=== PATIENT | male | born 1990 | race Caucasian/White ===

== ENCOUNTER 2018-01-10 12:46 | Emergency (ER) | payer MEDICAID ==
[2018-01-10] MEDS ORDERED: Ondansetron 4 MG/2 ML SDV IVPUSH ONE (13:01)
[2018-01-10] MEDS ORDERED: Sodium Chloride 0.9% 10 ML Syringe FLUSH PRN ×2 (13:01→13:02)
[2018-01-10] MEDS ORDERED: Haloperidol Lactate 5 MG/ML SDV IV ONE (13:03)
[2018-01-10] MEDS ORDERED: Lactated Ringers 1,000 ML IV SCH (13:15)
[2018-01-10] MEDS ORDERED: Haloperidol Lactate 5 MG/ML SDV IM ONE (13:19)
[2018-01-10] MEDS ORDERED: hydrOXYzine HCl 50 MG/ML SDV IM ONE (13:56)
[2018-01-10] MEDS ORDERED: Take Home: Ondansetron 4 MG Tab.DIS, 2 Tab Pack PO ONE (15:20)
--- NOTE | 2018-01-11 07:07 | EDM.PDOC ---
ED HPI GENERAL MEDICAL PROBLEM - General Chief Complaint: Behavioral/Psych Stated Complaint: er Time Seen by Provider: 01/10/18 12:55 Source of Information: Reports: Patient History Limitations: Reports: No Limitations - History of Present Illness INITIAL COMMENTS - FREE TEXT/NARRATIVE: Pt. presents to ER with complaints of nausea/vomiting. He has a history of cyclic vomiting syndrome. He went out last night and had several drinks, and states that he started vomiting last night. No fever or chills. No diarrhea. Denies any chest pain or shortness of breath. Location: Reports: Abdomen Lower Abdomen Pain Score (Numeric/FACES): 8 - Related Data Allergies Allergy/AdvReac Type Severity Reaction Status Date / Time No Known Allergies Allergy Verified 01/10/18 13:01 Past Medical History Gastrointestinal History: Reports: Other (See Below) Other Gastrointestinal History: cyclic vomiting disorder Psychiatric History: Reports: Anxiety, Depression, PTSD, Suicidal Ideation - Past Surgical History GI Surgical History: Reports: Cholecystectomy Social & Family History - Tobacco Use Smoking Status *Q: Current Every Day Smoker Years of Tobacco use: 10 Packs/Tins Daily: 0.5 - Alcohol Use Days Per Week of Alcohol Use: 2 Number of Drinks Per Day: 2 Total Drinks Per Week: 4 Date of Last Drink: 01/09/18 - Recreational Drug Use Recreational Drug Use: Yes Drug Use in Last 12 Months: Yes Recreational Drug Type: Reports: Marijuana/Hashish Recreational Drug Use Frequency: Socially ED ROS GENERAL - Review of Systems Review Of Systems: See Below Constitutional: Reports: No Symptoms HEENT: Reports: No Symptoms Respiratory: Reports: No Symptoms Cardiovascular: Reports: No Symptoms GI/Abdominal: Reports: Abdominal Pain, Nausea, Vomiting : Reports: No Symptoms Musculoskeletal: Reports: No Symptoms Skin: Reports: No Symptoms Neurological: Reports: No Symptoms Psychiatric: Reports: No Symptoms Hematologic/Lymphatic: Reports: No Symptoms Immunologic: Reports: No Symptoms ED EXAM, GENERAL - Physical Exam Exam: See Below Exam Limited By: No Limitations General Appearance: Alert, WD/WN, No Apparent Distress Nose: Normal Inspection, Normal Mucosa, No Blood Throat/Mouth: Normal Inspection, Normal Lips, Normal Teeth, Normal Gums, Normal Oropharynx, Normal Voice, No Airway Compromise Head: Atraumatic, Normocephalic Neck: Normal Inspection, Supple, Non-Tender, Full Range of Motion Respiratory/Chest: No Respiratory Distress, Lungs Clear, Normal Breath Sounds, No Accessory Muscle Use, Chest Non-Tender Cardiovascular: Normal Peripheral Pulses, Regular Rate, Rhythm, No Edema, No Gallop, No JVD, No Murmur, No Rub Peripheral Pulses: 4+: Radial (L), Radial (R) GI/Abdominal: Normal Bowel Sounds, Soft, No Organomegaly, No Distention, No Abnormal Bruit, No Mass, Tender. No: Guarding, Rigid, Mass, Hepatomegaly, Splenomegaly (Male) Exam: Deferred Rectal (Males) Exam: Deferred Back Exam: Normal Inspection, Full Range of Motion, NT Extremities: Normal Inspection, Normal Range of Motion, Non-Tender, Normal Capillary Refill, No Pedal Edema Neurological: Alert, Oriented, CN II-XII Intact, Normal Cognition, Normal Gait, Normal Reflexes, No Motor/Sensory Deficits Psychiatric: Normal Affect, Normal Mood Skin Exam: Warm, Dry, Intact, Normal Color, No Rash Lymphatic: No Adenopathy Course - Vital Signs Last Recorded V/S: Last Vital Signs Temp 36.3 C 01/10/18 12:46 Pulse 93 01/10/18 12:46 Resp 20 01/10/18 12:46 BP 133/68 01/10/18 12:46 Pulse Ox - Orders/Labs/Meds Orders: Active Orders 24 hr Category Date Time Status Peripheral IV Insertion Adult [OM.PC] Routine Oth 01/10/18 13:01 Ordered Meds: Medications Discontinued Medications Generic Name Dose Route Start Last Admin Trade Name Freq PRN Reason Stop Dose Admin Haloperidol Lactate 5 mg 01/10/18 13:03 Haldol IV 01/10/18 13:04 ONETIME ONE Haloperidol Lactate 5 mg 01/10/18 13:19 01/10/18 13:21 Haldol IM 01/10/18 13:20 5 mg STAT ONE Administration Hydroxyzine HCl 50 mg 01/10/18 13:56 01/10/18 14:05 Vistaril IM 01/10/18 13:57 50 mg ONETIME ONE Administration Lactated Ringer's 1,000 mls @ 500 mls/hr 01/10/18 13:15 01/10/18 13:07 Ringers, Lactated IV 500 mls/hr ASDIRECTED LEXI Administration Ondansetron HCl 4 mg 01/10/18 13:01 01/10/18 13:07 Zofran IVPUSH 01/10/18 13:02 4 mg ONETIME ONE Administration Ondansetron HCl 1 packet 01/10/18 15:20 01/10/18 15:35 Take Home: Ondansetron Odt 4 Mg, 2 Tab Pack PO 01/10/18 15:21 1 packet ONETIME ONE Administration Sodium Chloride 10 ml 01/10/18 13:01 Saline Flush FLUSH ASDIRECTED PRN Keep Vein Open Sodium Chloride 10 ml 01/10/18 13:02 Saline Flush FLUSH ASDIRECTED PRN Keep Vein Open Departure - Departure Time of Disposition: 15:38 Disposition: Home, Self-Care 01 Clinical Impression: Cyclic vomiting syndrome - Discharge Information Instructions: Cyclic Vomiting Syndrome, Adult Referrals: PCP,None [Primary Care Provider] - Forms: ED Department Discharge Additional Instructions: Home to rest. Zofran ODT 1 every 8 hours as needed for nausea/vomiting. Establish care. Follow-up in clinic in 7-10 days - My Orders Last 24 Hours: My Active Orders 01/10/18 13:01 Peripheral IV Insertion Adult [OM.PC] Routine - Assessment/Plan Last 24 Hours: My Active Orders 01/10/18 13:01 Peripheral IV Insertion Adult [OM.PC] Routine
== END 2018-01-10 15:38 | disposition home or self-care (01) ==
LOC: VM.ED 12:46
DX: G43.A0 Cyclical vomiting, in migraine, not intractable (principal); F17.210 Nicotine dependence, cigarettes, uncomplicated
CPT/HCPCS: 96361; 96372; 96374; 99284; A9270-GY; J1630; J2405; J3410; J7120

== ENCOUNTER 2018-01-12 07:52 | Emergency (ER) | payer MEDICAID ==
[2018-01-12] MEDS ORDERED: Lactated Ringers 1,000 ML IV ONE (08:04)
[2018-01-12] MEDS ORDERED: Ondansetron 4 MG/2 ML SDV IVPUSH ONE (08:04)
[2018-01-12] MEDS ORDERED: hydrOXYzine HCl 50 MG/ML SDV IM ONE (08:04)
[2018-01-12] MEDS ORDERED: Sodium Chloride 0.9% 10 ML Syringe FLUSH PRN (08:04)
[2018-01-12] MEDS ORDERED: LORazepam 2 MG/ML SDV IVPUSH ONE (08:05)
--- NOTE | 2018-01-12 08:28 | EDM.PDOC ---
ED HPI GENERAL MEDICAL PROBLEM - General Chief Complaint: Gastrointestinal Problem Stated Complaint: ILL Time Seen by Provider: 01/12/18 08:02 Source of Information: Reports: Patient History Limitations: Reports: No Limitations - History of Present Illness INITIAL COMMENTS - FREE TEXT/NARRATIVE: Patient has a history of cyclic vomiting syndrome typically triggered by anxiety and stress. He has recently from his with a move to [place]. He was to his son's 1 year birthday republican over the weekend and he began to ruminate over his circumstances. This has caused him to become increasingly anxious. He was treated here yesterday with similar symptoms with no improvement. NO fever. He smokes 1/2 PPD, denies current drug use. Has smoked marijuana in the past with the last reported incident 2-3 weeks ago. He does drink socially up to twice weekly. Denies chest pain, abdominal pain, blood in urine or stool. He is having regular BM's and voiding habits. No suicidal ideation at this time. Onset: Gradual Onset Date: 01/11/18 Duration: Constant, Intermittent Associated Symptoms: Reports: Nausea/Vomiting, Other (anxiety) - Related Data Allergies Allergy/AdvReac Type Severity Reaction Status Date / Time No Known Allergies Allergy Verified 01/12/18 08:04 Home Meds: Home Meds . [No Known Home Meds] 01/12/18 [History] Past Medical History Gastrointestinal History: Reports: Other (See Below) Other Gastrointestinal History: cyclic vomiting disorder Psychiatric History: Reports: Anxiety, Depression, PTSD, Suicidal Ideation - Past Surgical History GI Surgical History: Reports: Cholecystectomy Social & Family History - Tobacco Use Smoking Status *Q: Current Every Day Smoker Years of Tobacco use: 9 Packs/Tins Daily: 1 - Recreational Drug Use Recreational Drug Use: Yes Drug Use in Last 12 Months: Yes Recreational Drug Type: Reports: Marijuana/Hashish Recreational Drug Use Frequency: Not Used In Over 1 Month ED ROS GENERAL - Review of Systems Review Of Systems: See Below Constitutional: Reports: Chills HEENT: Reports: No Symptoms Respiratory: Reports: No Symptoms Cardiovascular: Reports: No Symptoms Endocrine: Reports: No Symptoms GI/Abdominal: Reports: Nausea, Vomiting : Reports: No Symptoms Musculoskeletal: Reports: No Symptoms Skin: Reports: No Symptoms Neurological: Reports: No Symptoms Psychiatric: Reports: Anxiety. Denies: Suicidal Ideation Hematologic/Lymphatic: Reports: No Symptoms Immunologic: Reports: No Symptoms ED EXAM, GI/ABD - Physical Exam Exam: See Below Exam Limited By: No Limitations General Appearance: Alert, WD/WN, Anxious Eyes: Bilateral: EOMI Ears: Normal External Exam, Normal Canal, Hearing Grossly Normal, Normal TMs Nose: Normal Inspection, Normal Mucosa, No Blood Throat/Mouth: Normal Inspection, Normal Lips, Normal Teeth, Normal Gums, Normal Oropharynx, Normal Voice, No Airway Compromise Head: Atraumatic, Normocephalic Neck: Normal Inspection, Supple, Non-Tender, Full Range of Motion Respiratory/Chest: No Respiratory Distress, Lungs Clear, Normal Breath Sounds, No Accessory Muscle Use, Chest Non-Tender Cardiovascular: Normal Peripheral Pulses, Regular Rate, Rhythm, No Edema, No Gallop, No JVD, No Murmur, No Rub GI/Abdominal Exam: Normal Bowel Sounds, Soft, Non-Tender, No Organomegaly, No Distention, No Abnormal Bruit, No Mass, Pelvis Stable Back Exam: Normal Inspection, Full Range of Motion, NT Extremities: Normal Inspection, Normal Range of Motion, Non-Tender, Normal Capillary Refill, No Pedal Edema Neurological: Alert, Oriented, CN II-XII Intact, Normal Cognition, Normal Gait, Normal Reflexes, No Motor/Sensory Deficits Psychiatric: Anxious Skin Exam: Warm, Dry, Intact, Normal Color, No Rash Lymphatic: No Adenopathy Course - Vital Signs Last Recorded V/S: Last Vital Signs Temp 36.0 C 01/12/18 07:55 Pulse 115 H 01/12/18 07:55 Resp 18 01/12/18 07:55 BP 145/99 H 01/12/18 07:55 Pulse Ox 96 01/12/18 07:55 - Orders/Labs/Meds Orders: Active Orders 24 hr Category Date Time Status Saline Lock Insert [OM.PC] Routine Oth 01/12/18 08:04 Ordered Meds: Medications Discontinued Medications Generic Name Dose Route Start Last Admin Trade Name Freq PRN Reason Stop Dose Admin Diphenhydramine HCl 50 mg 01/12/18 08:54 01/12/18 08:59 Benadryl IVPUSH 01/12/18 08:55 50 mg ONETIME ONE Administration Hydroxyzine HCl 50 mg 01/12/18 08:04 01/12/18 08:32 Vistaril IM 01/12/18 08:05 50 mg ONETIME ONE Administration Lactated Ringer's 1,000 mls @ 999 mls/hr 01/12/18 08:04 01/12/18 08:30 Ringers, Lactated IV 01/12/18 09:04 999 mls/hr .BOLUS ONE Administration Lorazepam 1 mg 01/12/18 08:05 01/12/18 08:33 Ativan IVPUSH 01/12/18 08:06 1 mg ONETIME ONE Administration Ondansetron HCl 4 mg 01/12/18 08:04 01/12/18 08:31 Zofran IVPUSH 01/12/18 08:05 4 mg ONETIME ONE Administration Sodium Chloride 10 ml 01/12/18 08:04 Saline Flush FLUSH ASDIRECTED PRN Keep Vein Open Departure - Departure Time of Disposition: 09:03 Disposition: Home, Self-Care 01 Condition: Good Clinical Impression: Cyclic vomiting syndrome Qualifiers: Vomiting Intractability: non-intractable Nausea presence: with nausea Qualified Code(s): G43.A0 - Cyclical vomiting, not intractable - Discharge Information Instructions: Generalized Anxiety Disorder, Adult, Dehydration, Adult, Easy-to- Read, Nausea and Vomiting, Adult, Cyclic Vomiting Syndrome, Adult, Living With Anxiety Forms: ED Department Discharge Additional Instructions: You do need to establish and follow with a primary provider to assist you with managing this condition Finding a counselor may also be beneficial Try to stay well hydrated Follow up in clinic rather than the emergency room as needed for symptom management since this is a chronic condition Please call us with any questions or concerns - Problem List & Annotations (1) Cyclic vomiting syndrome SNOMED Code(s): 62858142 Code(s): G43.A0 - CYCLICAL VOMITING, NOT INTRACTABLE Status: Acute Priority: Medium Qualifiers: Vomiting Intractability: non-intractable Nausea presence: with nausea Qualified Code(s): G43.A0 - Cyclical vomiting, not intractable - Problem List Review Problem List Initiated/Reviewed/Updated: Yes - My Orders Last 24 Hours: My Active Orders 01/12/18 08:04 Saline Lock Insert [OM.PC] Routine - Assessment/Plan Last 24 Hours: My Active Orders 01/12/18 08:04 Saline Lock Insert [OM.PC] Routine Assessment:: cyclic vomiting syndrome Plan: You do need to establish and follow with a primary provider to assist you with managing this condition Finding a counselor may also be beneficial Try to stay well hydrated Follow up in clinic rather than the emergency room as needed for symptom management since this is a chronic condition Please call us with any questions or concerns
[2018-01-12] MEDS ORDERED: diphenhydrAMINE 50 MG/ML SDV IVPUSH ONE (08:54)
== END 2018-01-12 09:03 | disposition home or self-care (01) ==
LOC: VM.ED 07:52
DX: G43.A0 Cyclical vomiting, in migraine, not intractable (principal); F17.210 Nicotine dependence, cigarettes, uncomplicated
CPT/HCPCS: 96374; 96375; 99283; J1200; J2060; J2405; J3410; J7120

== ENCOUNTER 2018-01-14 18:46 | Emergency (ER) | payer MEDICAID ==
[2018-01-14] MEDS ORDERED: Ketorolac 10 MG Tab PO ONE (19:42)
[2018-01-14] MEDS ORDERED: Haloperidol 5 MG Tab PO ONE (19:42)
--- NOTE | 2018-01-15 06:50 | EDM.PDOC ---
ED HPI GENERAL MEDICAL PROBLEM - General Chief Complaint: General Stated Complaint: abdominal pain/anxiety Time Seen by Provider: 01/14/18 19:30 Source of Information: Reports: Patient History Limitations: Reports: No Limitations - History of Present Illness INITIAL COMMENTS - FREE TEXT/NARRATIVE: The pt. presents to ER with continued abdominal discomfort and anxiety. Was in earlier this week and past weekend for the same. States that he has the same stressors, including a recent divorce. Denies any suicidal or homicidal ideation. Abdomen Pain Score (Numeric/FACES): 6 - Related Data Allergies Allergy/AdvReac Type Severity Reaction Status Date / Time No Known Allergies Allergy Verified 01/14/18 19:09 Home Meds: Home Meds LORazepam [Ativan] 0.5 mg PO Q4H PRN 01/14/18 [History] Ondansetron [Zofran ODT] 4 mg PO ASDIRECTED PRN 01/14/18 [History] Past Medical History Gastrointestinal History: Reports: Other (See Below) Other Gastrointestinal History: cyclic vomiting disorder Psychiatric History: Reports: Anxiety, Depression, PTSD, Suicidal Ideation - Past Surgical History GI Surgical History: Reports: Cholecystectomy Social & Family History - Tobacco Use Smoking Status *Q: Current Every Day Smoker Years of Tobacco use: 9 Packs/Tins Daily: 0.5 ED ROS GENERAL - Review of Systems Review Of Systems: See Below Constitutional: Reports: No Symptoms HEENT: Reports: No Symptoms Respiratory: Reports: No Symptoms Cardiovascular: Reports: No Symptoms Endocrine: Reports: No Symptoms GI/Abdominal: Reports: No Symptoms : Reports: No Symptoms Musculoskeletal: Reports: No Symptoms Skin: Reports: No Symptoms Neurological: Reports: No Symptoms Psychiatric: Reports: No Symptoms Hematologic/Lymphatic: Reports: No Symptoms Immunologic: Reports: No Symptoms ED EXAM, GENERAL - Physical Exam Exam: See Below Ear Exam: Bilateral Ear: Auricle Normal, Canal Normal, TM normal Nose: Normal Inspection, Normal Mucosa, No Blood Throat/Mouth: Normal Inspection, Normal Lips, Normal Teeth, Normal Gums, Normal Oropharynx, Normal Voice, No Airway Compromise Head: Atraumatic, Normocephalic Neck: Normal Inspection, Supple, Non-Tender, Full Range of Motion Respiratory/Chest: No Respiratory Distress Cardiovascular: Normal Peripheral Pulses, Regular Rate, Rhythm, No Edema, No Gallop, No JVD, No Murmur, No Rub GI/Abdominal: Normal Bowel Sounds, Soft, Non-Tender, No Organomegaly, No Distention, No Abnormal Bruit, No Mass Back Exam: Normal Inspection, Full Range of Motion, NT Extremities: Normal Inspection, Normal Range of Motion, Non-Tender, Normal Capillary Refill, No Pedal Edema Neurological: Alert, Oriented, CN II-XII Intact, Normal Cognition, Normal Gait, Normal Reflexes, No Motor/Sensory Deficits Psychiatric: Anxious, Tearful Skin Exam: Warm, Dry, Intact, Normal Color, No Rash Course - Vital Signs Last Recorded V/S: Last Vital Signs Temp 38.0 C 01/14/18 19:13 Pulse 120 H 01/14/18 19:13 Resp 18 01/14/18 19:13 BP 123/66 01/14/18 19:13 Pulse Ox 96 01/14/18 19:13 - Orders/Labs/Meds Meds: Medications Discontinued Medications Generic Name Dose Route Start Last Admin Trade Name Butchq PRN Reason Stop Dose Admin Haloperidol 5 mg 01/14/18 19:42 01/14/18 20:00 Haldol PO 01/14/18 19:43 5 mg ONETIME ONE Administration Ketorolac Tromethamine 10 mg 01/14/18 19:42 01/14/18 20:00 Toradol PO 01/14/18 19:43 10 mg ONETIME ONE Administration Departure - Departure Time of Disposition: 20:05 Disposition: Home, Self-Care 01 Clinical Impression: Panic attack - Discharge Information Instructions: Panic Attack, [id number] Referrals: Mayuri Gardner PA-C [Primary Care Provider] - Forms: ED Department Discharge Additional Instructions: Follow-up with primary care regarding your anxiety.
== END 2018-01-14 20:05 | disposition home or self-care (01) ==
LOC: VM.ED 18:46
DX: F41.0 Panic disorder [episodic paroxysmal anxiety] (principal); F17.210 Nicotine dependence, cigarettes, uncomplicated
CPT/HCPCS: 99283; A9270-GY

== ENCOUNTER 2018-01-15 15:04 | Emergency (ER) | payer MEDICAID ==
[2018-01-15] MEDS ORDERED: Ondansetron 4 MG/2 ML SDV IM ONE (15:21)
[2018-01-15] MEDS ORDERED: LORazepam 2 MG/ML SDV IM ONE (15:22)
--- NOTE | 2018-01-15 15:28 | EDM.PDOCBH ---
ED HPI GENERAL MEDICAL PROBLEM - General Chief Complaint: Behavioral/Psych Stated Complaint: Anxiety; N/V Time Seen by Provider: 01/15/18 15:07 Source of Information: Reports: Patient, Old Records, RN, RN Notes Reviewed History Limitations: Reports: No Limitations - History of Present Illness INITIAL COMMENTS - FREE TEXT/NARRATIVE: Patient presents again to this ER for the treatment of his anxiety which is causing nausea and vomiting. He has been seen on three separate occasion this past week. Patient states he had a recent break up with a SO which is the root of his current symptoms. He states he moved to this area after his separation. He lives with a friend and he is currently employed. He states he has tried to listen to music, take warm baths, use a fan, and talk with friends to help his current symptoms. He just feels very overwhelmed. He does not have any suicidal ideation. He knows he needs psych help. He states he has set up an appointment with a PCP for this Thursday at 3pm [facility]. Onset: Gradual - Related Data Allergies Allergy/AdvReac Type Severity Reaction Status Date / Time No Known Allergies Allergy Verified 01/14/18 19:09 Home Meds: Home Meds LORazepam [Ativan] 0.5 mg PO Q4H PRN 01/14/18 [History] Ondansetron [Zofran ODT] 4 mg PO ASDIRECTED PRN 01/14/18 [History] hydrOXYzine HCl [Atarax] 1 tab PO Q8H PRN #20 tab 01/15/18 [Rx] Past Medical History Gastrointestinal History: Reports: Other (See Below) Other Gastrointestinal History: cyclic vomiting disorder Psychiatric History: Reports: Anxiety, Depression, PTSD, Suicidal Ideation - Past Surgical History GI Surgical History: Reports: Cholecystectomy ED ROS GENERAL - Review of Systems Review Of Systems: See Below Constitutional: Denies: Fever, Chills, Weakness Respiratory: Denies: Shortness of Breath, Cough Cardiovascular: Denies: Chest Pain, Palpitations GI/Abdominal: Reports: Nausea, Vomiting. Denies: Abdominal Pain Skin: Reports: No Symptoms Neurological: Denies: Dizziness, Headache Psychiatric: Reports: Anxiety. Denies: Depression, Homicidal Ideation, Suicidal Ideation ED EXAM, BEHAVIORAL HEALTH - Physical Exam Exam: See Below Exam Limited By: No Limitations General Appearance: Alert, No Apparent Distress Respiratory/Chest: No Respiratory Distress, Lungs Clear, Normal Breath Sounds Cardiovascular: Normal Peripheral Pulses, Regular Rate, Rhythm GI/Abdominal: Normal Bowel Sounds, Soft, Non-Tender Neurological: Alert, No Motor/Sensory Deficits, Oriented x 3 Psychiatric: Alert, Normal Cognition, Oriented, Restless, Other (anxiety). No: Homicidal Thoughts, Suicidal Plan, Suicidal Thoughts, Visual Hallucinations Skin Exam: Warm, Dry, Intact COURSE, BEHAVIORAL HEALTH COMP - Course Orders, Labs, Meds: Active Orders 24 hr Category Date Time Status LORazepam [Ativan] Med 01/15/18 15:22 Once 2 mg IM ONETIME ONE Medication Orders Lorazepam (Ativan) 2 mg IM ONETIME ONE Stop: 01/15/18 15:23 Medications Generic Name Dose Route Start Last Admin Trade Name Freq PRN Reason Stop Dose Admin Lorazepam 2 mg 01/15/18 15:22 Ativan IM 01/15/18 15:23 ONETIME ONE Discontinued Medications Generic Name Dose Route Start Last Admin Trade Name Freq PRN Reason Stop Dose Admin Ondansetron HCl 8 mg 01/15/18 15:21 Zofran IM 01/15/18 15:22 ONETIME ONE Departure - Departure Time of Disposition: 15:34 Disposition: Home, Self-Care 01 Condition: Good Clinical Impression: Anxiety Nausea & vomiting Qualifiers: Vomiting type: unspecified Vomiting Intractability: non-intractable Qualified Code(s): R11.2 - Nausea with vomiting, unspecified - Discharge Information Prescriptions: hydrOXYzine HCl [Atarax] 1 tab PO Q8H PRN #20 tab PRN Reason: Anxiety Instructions: Living With Anxiety, Nausea and Vomiting, Adult, Panic Attack, Hydroxyzine capsules or tablets Forms: ED Department Discharge Additional Instructions: 1. Stay well hydrated and rest 2. Take anxiety medication as directed 3. Eat healthy 4. Do not smoke 5. Exercise will help with anxiety 6. Keep your appointment with Mayuri Gardner this Thursday 7. Call us with any questions/concerns - Problem List Review Problem List Initiated/Reviewed/Updated: Yes - My Orders Last 24 Hours: My Active Orders 01/15/18 15:22 LORazepam [Ativan] 2 mg IM ONETIME ONE - Assessment/Plan Last 24 Hours: My Active Orders 01/15/18 15:22 LORazepam [Ativan] 2 mg IM ONETIME ONE Assessment:: Nausea and vomiting 2/2 anxiety Plan: Had a long discussion with patient about appropriate emergency care use vs PCP treatment. Reviewed with patient his multiple visits to this ER and their appropriateness. Patient states he is scheduled to establish care with a PCP this Thursday at 3pm. I did discussed with patient that any future visits to this ER for his anxiety will result in a transfer to the [facility] in [place]. Reason being his symptoms are not under good control and the risk of worsening effects a greater as his symptoms go undertreated. Patient agrees and states he will voluntarily commit to [place] if he needs to come back to this ER.
== END 2018-01-15 15:45 | disposition home or self-care (01) ==
LOC: VM.ED 15:04
DX: F41.9 Anxiety disorder, unspecified (principal); R11.2 Nausea with vomiting, unspecified
CPT/HCPCS: 96372; 99283; J2060; J2405

== ENCOUNTER 2018-01-17 09:02 | Emergency (ER) | payer MEDICAID ==
--- NOTE | 2018-01-17 09:46 | EDM.PDOC ---
ED HPI GENERAL MEDICAL PROBLEM - General Chief Complaint: General Stated Complaint: nausea/anxiety Time Seen by Provider: 01/17/18 09:15 Source of Information: Reports: Patient History Limitations: Reports: No Limitations - History of Present Illness INITIAL COMMENTS - FREE TEXT/NARRATIVE: Pt comes in with nausea and could not being able to sleep. Pt has only been in [place] for under 2 weeks and has been in the ER 5 times and clinic 1 time. He was given 20 tablets of Ativan, multiple doses of Haldol, zofran, fluids, and told to follow up with PCP. He return with same symptoms. He states he is anxious tired, jittery, nauseated, diaphoretic, and urinary concerns. He has only been able to vomit under 3 times for he has not eating in 3-5 days he states. Sleeping less than an hour a night. He has chronic pain, hip and back. He did have a CT scan prior to coming to [place] which came back negative. He has not had any precipitating factors. Nothing that he does relieves the symptoms. She also has complaints and concerns about frequent urination and hesitancy and left flank pain. This is been going on for a couple weeks as well. Denies any burning sensation any discharge or any abnormal growths on sexual partners. Does not have a history of STDs. Onset: Gradual Associated Symptoms: Denies: Diaphoresis, Fever/Chills, Headaches, Loss of Appetite, Nausea/Vomiting, Rash, Seizure, Shortness of Breath, Weakness Lower Abdomen Pain Score (Numeric/FACES): 6 - Related Data Allergies Allergy/AdvReac Type Severity Reaction Status Date / Time No Known Allergies Allergy Verified 01/17/18 09:17 Home Meds: Home Meds LORazepam [Ativan] 0.5 mg PO Q4H PRN 01/14/18 [History] Ondansetron [Zofran ODT] 4 mg PO ASDIRECTED PRN 01/14/18 [History] hydrOXYzine HCl [Atarax] 1 tab PO Q8H PRN #20 tab 01/15/18 [Rx] Past Medical History Gastrointestinal History: Reports: Other (See Below) Other Gastrointestinal History: cyclic vomiting disorder Psychiatric History: Reports: Anxiety, Depression, PTSD, Suicidal Ideation - Past Surgical History GI Surgical History: Reports: Cholecystectomy ED ROS GENERAL - Review of Systems Review Of Systems: See Below HEENT: Reports: No Symptoms Respiratory: Reports: No Symptoms Cardiovascular: Reports: No Symptoms GI/Abdominal: Reports: Nausea, Vomiting. Denies: Abdominal Pain, Anorexia, Black Stool, Constipation, Diarrhea, Decreased Appetite, Difficulty Swallowing, Distension, Flatus, Hematemesis, Hematochezia, Stool Incontinence Musculoskeletal: Reports: No Symptoms Skin: Reports: No Symptoms Neurological: Reports: No Symptoms Psychiatric: Reports: Agitation, Anxiety Hematologic/Lymphatic: Reports: No Symptoms Immunologic: Reports: No Symptoms ED EXAM, GENERAL - Physical Exam Exam: See Below Exam Limited By: No Limitations General Appearance: Alert, WD/WN, No Apparent Distress Respiratory/Chest: No Respiratory Distress, Lungs Clear, No Accessory Muscle Use , Chest Non-Tender Cardiovascular: Normal Peripheral Pulses, Regular Rate, Rhythm, No Edema Back Exam: Normal Inspection, Full Range of Motion Extremities: Normal Inspection, Normal Range of Motion, Non-Tender, Normal Capillary Refill Neurological: Alert, Oriented Psychiatric: Anxious, Flat Affect Skin Exam: Warm, Dry, Intact, Other (multiple abrasions noted bilater knees, and redness over abdomen with scratch herring) Course - Vital Signs Last Recorded V/S: Last Vital Signs Temp 37.1 C 01/17/18 09:03 Pulse 107 H 01/17/18 09:03 Resp 16 01/17/18 09:03 BP 148/86 H 01/17/18 09:03 Pulse Ox 96 01/17/18 09:03 - Orders/Labs/Meds Orders: Active Orders 24 hr Category Date Time Status CULTURE URINE [RM] Stat Lab 01/17/18 09:45 Received DRUG SCREEN, URINE [URCHEM] Stat Lab 01/17/18 09:45 Ordered MISC TEST Routine Lab 01/17/18 09:45 Received MISC TEST Stat Lab 01/17/18 09:45 Received UA W/MICROSCOPIC [URIN] Stat Lab 01/17/18 09:45 Ordered Labs: Laboratory Tests 01/17/18 01/17/18 01/17/18 Range/Units 09:45 09:45 10:02 WBC 15.0 H (4.0-10.0) x10^3/uL RBC 5.49 (4.5-6.0) x10^6/uL Hgb 17.6 (14.0-18.0) g/dL Hct 45.8 (40.0-52.0) % MCV 83.4 (78.0-93.0) fL MCH 32.1 H (26.0-32.0) pg MCHC 38.4 H (32.0-36.0) g/dL RDW Coeff of Gricelda 11.6 (10.0-15.0) % Plt Count 333 (130-400) x10^3/uL Neut % (Auto) 77.9 (50.0-80.0) % Lymph % (Auto) 12.7 L (25.0-50.0) % [place] % (Auto) 9.0 (2.0-11.0) % Eos % (Auto) 0.3 (0.0-4.0) % Baso % (Auto) 0.1 L (0.2-1.2) % Sodium (136-145) mmol/L Potassium (3.5-5.1) mmol/L Chloride (98-107) mmol/L Carbon Dioxide (21-32) mmol/L Anion Gap (10-20) mmol/L BUN (7-18) mg/dL Creatinine (0.70-1.30) mg/dL Est Cr Clr Drug Dosing mL/min Estimated GFR (MDRD) Glucose (74-106) mg/dL Calcium (8.5-10.1) mg/dL Corrected Calcium (8.5-10.1) mg/dL Total Bilirubin (0.2-1.0) mg/dL AST (15-37) U/L ALT (16-63) U/L Alkaline Phosphatase (46-116) U/L Total Protein (6.4-8.2) g/dL Albumin (3.4-5.0) g/dL Globulin Albumin/Globulin Ratio Urine Color Dark yellow H (YELLOW) Urine Appearance Slightly cloudy H (CLEAR) Urine pH 6.0 (5.0-8.0) Ur Specific [place] 1.025 Urine Protein 30 H (NEGATIVE) mg/dL Urine Glucose (UA) Negative (NEGATIVE) mg/dL Urine Ketones Trace H (NEGATIVE) mg/dL Urine Occult Blood Negative (NEGATIVE) Urine Nitrite Negative (NEGATIVE) Urine Bilirubin Moderate H (NEGATIVE) Urine Urobilinogen 4.0 H (0.2) EU/dL Ur Leukocyte Esterase Negative (NEGATIVE) Urine RBC 0-5 (NOT SEEN) /HPF Urine WBC 0-5 (NOT SEEN) /HPF Ur Squamous Epith Cells Not seen (NEGATIVE) /HPF Amorphous Sediment Few Urine Bacteria Few H (NEGATIVE) /HPF Urine Mucus Moderate H (NEGATIVE) /LPF Urine Opiates Screen Negative (NEAGTIVE) Ur Buprenorphine Scrn Negative (NEGATIVE) Ur Oxycodone Screen Negative (NEGATIVE) Urine Methadone Screen Negative (NEGATIVE) Ur Barbiturates Screen Negative (NEGATIVE) Ur Tricyclics Screen Negative (NEGATIVE) Ur Amphetamine Screen Negative (NEGATIVE) U Methamphetamines Scrn Negative (NEGATIVE) Urine MDMA Screen Negative (NEGATIVE) U Benzodiazepines Scrn Positive H (NEGATIVE) U Cocaine Metab Screen Negative (NEGATIVE) U Marijuana (THC) Screen Positive H (NEGATIVE) 01/17/18 Range/Units 10:02 WBC (4.0-10.0) x10^3/uL RBC (4.5-6.0) x10^6/uL Hgb (14.0-18.0) g/dL Hct (40.0-52.0) % MCV (78.0-93.0) fL MCH (26.0-32.0) pg MCHC (32.0-36.0) g/dL RDW Coeff of [place]da (10.0-15.0) % Plt Count (130-400) x10^3/uL Neut % (Auto) (50.0-80.0) % Lymph % (Auto) (25.0-50.0) % [place] % (Auto) (2.0-11.0) % Eos % (Auto) (0.0-4.0) % Baso % (Auto) (0.2-1.2) % Sodium 130 L (136-145) mmol/L Potassium 3.2 L (3.5-5.1) mmol/L Chloride 88 L (98-107) mmol/L Carbon Dioxide 29 (21-32) mmol/L Anion Gap 16.2 (10-20) mmol/L BUN 23 H (7-18) mg/dL Creatinine 1.1 (0.70-1.30) mg/dL Est Cr Clr Drug Dosing 98.79 mL/min Estimated GFR (MDRD) > 60 Glucose 118 H (74-106) mg/dL Calcium 9.7 (8.5-10.1) mg/dL Corrected Calcium 8.74 (8.5-10.1) mg/dL Total Bilirubin 2.7 H (0.2-1.0) mg/dL AST 71 H (15-37) U/L ALT 43 (16-63) U/L Alkaline Phosphatase 88 (46-116) U/L Total Protein 8.7 H (6.4-8.2) g/dL Albumin 5.2 H (3.4-5.0) g/dL Globulin 3.5 Albumin/Globulin Ratio 1.49 Urine Color (YELLOW) Urine Appearance (CLEAR) Urine pH (5.0-8.0) Ur Specific [place] Urine Protein (NEGATIVE) mg/dL Urine Glucose (UA) (NEGATIVE) mg/dL Urine Ketones (NEGATIVE) mg/dL Urine Occult Blood (NEGATIVE) Urine Nitrite (NEGATIVE) Urine Bilirubin (NEGATIVE) Urine Urobilinogen (0.2) EU/dL Ur Leukocyte Esterase (NEGATIVE) Urine RBC (NOT SEEN) /HPF Urine WBC (NOT SEEN) /HPF Ur Squamous Epith Cells (NEGATIVE) /HPF Amorphous Sediment Urine Bacteria (NEGATIVE) /HPF Urine Mucus (NEGATIVE) /LPF Urine Opiates Screen (NEAGTIVE) Ur Buprenorphine Scrn (NEGATIVE) Ur Oxycodone Screen (NEGATIVE) Urine Methadone Screen (NEGATIVE) Ur Barbiturates Screen (NEGATIVE) Ur Tricyclics Screen (NEGATIVE) Ur Amphetamine Screen (NEGATIVE) U Methamphetamines Scrn (NEGATIVE) Urine MDMA Screen (NEGATIVE) U Benzodiazepines Scrn (NEGATIVE) U Cocaine Metab Screen (NEGATIVE) U Marijuana (THC) Screen (NEGATIVE) Meds: Medications Discontinued Medications Generic Name Dose Route Start Last Admin Trade Name Mandy PRN Reason Stop Dose Admin Ceftriaxone Sodium 1 gm 01/17/18 10:32 Rocephin IM 01/17/18 10:33 ONETIME ONE Ceftriaxone Sodium 1 gm/ 0 gm 01/17/18 10:36 01/17/18 10:43 Lidocaine HCl 2.1 ml IM 01/17/18 10:37 1 inj ONETIME ONE Administration Trimethoprim/Sulfamethoxazole 3 packet 01/17/18 10:14 Take Home: Sulfameth/Trimet 800-160mg, 2 Pack PO 01/17/18 10:15 ONETIME ONE Trimethoprim/Sulfamethoxazole 1 packet 01/17/18 10:33 01/17/18 10:43 Take Home: Sulfameth/Trimet 800-160mg, 2 Pack PO 01/17/18 10:34 1 packet ONETIME ONE Administration Departure - Departure Time of Disposition: 10:30 Disposition: Home, Self-Care 01 Condition: Good Clinical Impression: Anxiety, Pyelonephritis, acute UTI (urinary tract infection) Qualifiers: Urinary tract infection type: site unspecified Hematuria presence: without hematuria Qualified Code(s): N39.0 - Urinary tract infection, site not specified - Discharge Information Instructions: Generalized Anxiety Disorder, Adult, Urinary Tract Infection, Adult, [id number], Sulfamethoxazole; Trimethoprim, SMX-TMP tablets Referrals: Mayuri Gardner PA-C [Primary Care Provider] - Forms: ED Department Discharge Additional Instructions: 1. Increase water intake 2. Cough with primary care for chronic management of anxiety and depression 3. Eat foods low in salt, spicy, and avoid caffeine 4. Please set up primary care provider 5. Take antibiotics until gone. For UTI symptoms 6. And take [id number] Tylenol and ibuprofen as needed for pain 7. Diet and exercise as tolerated - My Orders Last 24 Hours: My Active Orders 01/17/18 09:45 CULTURE URINE [RM] Stat DRUG SCREEN, URINE [URCHEM] Stat MISC TEST Routine MISC TEST Stat UA W/MICROSCOPIC [URIN] Stat - Assessment/Plan Last 24 Hours: My Active Orders 01/17/18 09:45 CULTURE URINE [RM] Stat DRUG SCREEN, URINE [URCHEM] Stat MISC TEST Routine MISC TEST Stat UA W/MICROSCOPIC [URIN] Stat Assessment:: 1. anxiety 2. UTI 3. Nausea Plan: 1. UA/UC completed in ER 2. Drug screen completed 3. Labs completed in ER with results given 4. Long discussion had with the patient that he will not receive any more controlled substances out of the ER. Patient is also advised a history using the emergency department for emergency use only. Chronic conditions and concerns can be addressed by a primary care provider. Patient is educated extensively regarding proper sleep hygiene and illicit drug use. Patient is advised to follow up with PCP and evaluate his anxiety and depression. Emergency department is not suitable for long-term management of anxiety and depression. Patient has had an extensive workup regarding CT exams in [place] according to him he does not want anymore CT scans done. He is willing to do a urine sample and labs only. 5. Patient exits room multiple times asking to be discharged. He does not want to wait for his results to come back. He states he feels fine. 6. Pt was given anti nausea and ativan in the ER and sent home with a prescription. Will not send the pt home with any additional 7. PDMP was looked up and was unable to view [place] however in [place] only fill was the ativan that was given from the ER 5 days ago. 8. UA positive- Bactrim given culture will be sent for sensitivity. 9. Rocephin IM given in the ER 10. Education given to follow up in clinic Thursday
[2018-01-17] MEDS ORDERED: Take Home: Sulfamethoxazole/Trimethoprim 800-160 MG Tab, 2 Tab Pack PO ONE (10:14)
[2018-01-17 10:28] LABS: CHLORIDE,CL 88 mmol/L (98-107); SODIUM,NA 130 mmol/L (136-145)
[2018-01-17] MEDS ORDERED: cefTRIAXone 1 GM Vial IM ONE (10:32)
[2018-01-17] MEDS: cefTRIAXone 1 GM, Lidocaine 1% 2.1 ML IM ONE ×2 (10:43)
[2018-01-17] MEDS: Take Home: Sulfamethoxazole/Trimethoprim 800-160 MG Tab, 2 Tab Pack PO ONE (10:43)
== END 2018-01-17 10:50 | disposition home or self-care (01) ==
LOC: VM.ED 09:02
DX: N10 Acute pyelonephritis (principal); F41.9 Anxiety disorder, unspecified; F32.9 Major depressive disorder, single episode, unspecified; Z90.49 Acquired absence of other specified parts of digestive tract; Z79.899 Other long term (current) drug therapy
CPT/HCPCS: 36415; 80053; 80305; 81001; 85025; 87086; 96372; 99283; A9270-GY; J0696

== ENCOUNTER 2018-01-20 15:05 | Emergency (ER) | payer MEDICAID ==
--- NOTE | 2018-01-21 04:18 | EDM.PDOC ---
ED HPI GENERAL MEDICAL PROBLEM - General Chief Complaint: General Time Seen by Provider: 01/20/18 15:05 Source of Information: Reports: Patient - History of Present Illness Onset: Today Associated Symptoms: Reports: Nausea/Vomiting - Related Data Allergies Allergy/AdvReac Type Severity Reaction Status Date / Time No Known Allergies Allergy Verified 01/20/18 15:18 Home Meds: Home Meds LORazepam [Ativan] 0.5 mg PO Q4H PRN 01/14/18 [History] Ondansetron [Zofran ODT] 4 mg PO ASDIRECTED PRN 01/14/18 [History] hydrOXYzine HCl [Atarax] 1 tab PO Q8H PRN #20 tab 01/15/18 [Rx] Past Medical History Gastrointestinal History: Reports: Other (See Below) Other Gastrointestinal History: cyclic vomiting disorder Psychiatric History: Reports: Anxiety, Depression, PTSD, Suicidal Ideation - Past Surgical History GI Surgical History: Reports: Cholecystectomy Social & Family History - Tobacco Use Smoking Status *Q: Never Smoker ED ROS GENERAL - Review of Systems Review Of Systems: See Below Constitutional: Reports: No Symptoms HEENT: Reports: No Symptoms Respiratory: Reports: No Symptoms Cardiovascular: Reports: No Symptoms Endocrine: Reports: No Symptoms GI/Abdominal: Reports: No Symptoms : Reports: No Symptoms Musculoskeletal: Reports: No Symptoms Skin: Reports: No Symptoms Neurological: Reports: No Symptoms Psychiatric: Reports: No Symptoms Hematologic/Lymphatic: Reports: No Symptoms Immunologic: Reports: No Symptoms ED EXAM, GENERAL - Physical Exam Exam: See Below General Appearance: Alert, WD/WN, No Apparent Distress Ears: Normal External Exam, Normal Canal, Hearing Grossly Normal, Normal TMs Ear Exam: Bilateral Ear: Auricle Normal, Canal Normal, TM normal Nose: Normal Inspection, Normal Mucosa, No Blood Throat/Mouth: Normal Inspection, Normal Lips, Normal Teeth, Normal Gums, Normal Oropharynx, Normal Voice, No Airway Compromise Head: Atraumatic, Normocephalic Neck: Normal Inspection, Supple, Non-Tender, Full Range of Motion Respiratory/Chest: No Respiratory Distress, Lungs Clear, Normal Breath Sounds, No Accessory Muscle Use, Chest Non-Tender Cardiovascular: Normal Peripheral Pulses, Regular Rate, Rhythm, No Edema, No Gallop, No JVD, No Murmur, No Rub Peripheral Pulses: 4+: Radial (L), Radial (R) GI/Abdominal: Normal Bowel Sounds, Soft, Non-Tender, No Organomegaly, No Distention, No Abnormal Bruit, No Mass (Male) Exam: Deferred Rectal (Males) Exam: Deferred Back Exam: Normal Inspection, Full Range of Motion, NT Extremities: Normal Inspection, Normal Range of Motion, Non-Tender, Normal Capillary Refill, No Pedal Edema Neurological: Alert, Oriented, CN II-XII Intact, Normal Cognition, Normal Gait, Normal Reflexes, No Motor/Sensory Deficits Psychiatric: Normal Affect, Normal Mood Skin Exam: Warm, Dry, Intact, Normal Color, No Rash Lymphatic: No Adenopathy Course - Vital Signs Last Recorded V/S: Last Vital Signs Temp 37.3 C 01/20/18 15:10 Pulse 100 01/20/18 15:10 Resp 18 01/20/18 15:10 BP 137/76 01/20/18 15:10 Pulse Ox 97 01/20/18 15:10 Departure - Departure Time of Disposition: 15:46 Disposition: Home, Self-Care 01 Clinical Impression: Nausea & vomiting Qualifiers: Vomiting type: unspecified Vomiting Intractability: non-intractable Qualified Code(s): R11.2 - Nausea with vomiting, unspecified - Discharge Information Instructions: Nausea, Adult Referrals: Monie Vera PA-C [Primary Care Provider] - Forms: ED Department Discharge Additional Instructions: zofran ODT 4mg every 8 hours as needed for nausea/vomiting Follow-up in clinic if not improving Stop bactrim, as you do not have leukocytes or nitrates in your urine
== END 2018-01-20 15:46 | disposition home or self-care (01) ==
LOC: VM.ED 15:05
DX: R11.2 Nausea with vomiting, unspecified (principal)
CPT/HCPCS: 99283